=== PATIENT | female | born 1940 | race Caucasian/White ===

== ENCOUNTER 2019-11-01 11:47 | Inpatient (IN) ==
[2019-11-01] MEDS ORDERED: *HR* OxyCODONE/APAP 5/325 TABLET PO PRN (12:03)
[2019-11-01] MEDS ORDERED: *HR* Promethazine 25 MG/ML VIAL IVP PRN (12:03)
[2019-11-01] MEDS ORDERED: Ondansetron 4 MG/2 ML VIAL IVP ONE (12:03)
[2019-11-01] MEDS ORDERED: *HR* HYDROmorphone PF 0.5 MG/0.5 ML SYRINGE IVP PRN (12:03)
[2019-11-01] MEDS ORDERED: Acetaminophen IV 1,000 MG/100 ML INFUS..BTL IVPB ONE (12:04)
[2019-11-01] MEDS ORDERED: CeFAZolin Syr 2,000MG/20 ML 2,000 MG/20 ML SYRINGE IVPB ONE (13:25)
[2019-11-01] MEDS ORDERED: Ringers Solution, Lactated 1,000 ML IVC SCH (13:30)
[2019-11-01] MEDS ORDERED: Dexamethasone 4 MG/ML VIAL ONE (16:37)
[2019-11-01] MEDS ORDERED: Ondansetron 4 MG/2 ML VIAL ONE (16:37)
[2019-11-01] MEDS ORDERED: *HR* FentaNYL (PF) 100 MCG/2 ML VIAL ONE (16:37)
[2019-11-01] MEDS ORDERED: *HR* Succinylcholine 200 MG/10 ML VIAL IVP ONE ×2 (16:37→16:42)
[2019-11-01] MEDS ORDERED: Lidocaine -MPF 2% 2 ML VIAL ONE ×2 (16:37→16:42)
[2019-11-01] MEDS ORDERED: Lidocaine HCL 4 ML Topical Solution (Laryng-O-Jet Kit Sterile Pak) TP ONE (16:37)
[2019-11-01] MEDS ORDERED: *HR* Midazolam HCl 2 MG/2 ML VIAL ONE (16:37)
[2019-11-01] MEDS ORDERED: *HR* Propofol 200 MG/20 ML VIAL IVP ONE ×2 (16:37→16:42)
[2019-11-01] MEDS ORDERED: Vancomycin 1,000 MG VIAL ONE (16:41)
[2019-11-01] MEDS ORDERED: Ethanol\\Acetic Acid\\Na Ace\\Ben 1,000 ML IRRIG.SOLN IR ONE (16:41)
[2019-11-01] MEDS ORDERED: Ropivacaine/PF 0.5% 30 ML VIAL ONE (16:42)
[2019-11-01] MEDS ORDERED: Lidocaine -MPF 4% 5 ML AMPUL ONE (16:42)
[2019-11-01] MEDS ORDERED: ROPIVACAINE/PF/NS 0.25% 1 EACH SYRINGE INTRAART ONE (16:43)
[2019-11-01] MEDS ORDERED: *HR* PHENYLEPHRINE 1,000 MCG/10 ML SYRINGE IVP ONE ×3 (17:00→17:55)
[2019-11-01] MEDS ORDERED: *HR* Enoxaparin 30 MG/0.3 ML SYRINGE SQ SCH (18:00)
[2019-11-01 19:18] LABS: Hematocrit 39.2 % (35.3-44.9); Hemoglobin 13.2 g/dL (11.5-15.4)
[2019-11-01] MEDS ORDERED: D5% in Water 1,000 ML IVC PRN (19:24)
[2019-11-01] MEDS ORDERED: Dextrose Gel 15 GM/37.5 ML TUBE PO PRN ×2 (19:24)
[2019-11-01] MEDS ORDERED: *HR* OxyCODONE Immed Rel 5 MG TABLET PO PRN (19:24)
[2019-11-01] MEDS ORDERED: *HR* Dextrose 50 % in Water (Vial) 50 ML VIAL IVP PRN (19:24)
[2019-11-01] MEDS ORDERED: Sennosides 8.6 MG TABLET PO PRN (19:24)
[2019-11-01] MEDS ORDERED: Ondansetron 4 MG/2 ML VIAL IVP PRN (19:24)
[2019-11-01] MEDS ORDERED: MOM Conc 10 ML UD.LIQ PO PRN (19:24)
[2019-11-01] MEDS: Ringers Solution, Lactated 1,000 ML IVC SCH (19:36)
[2019-11-01] MEDS: Insulin LISPRO 300 UNITS/3 ML VIAL SQ SCH ×2 (20:38→20:39)
[2019-11-02] MEDS: CeFAZolin 2 GM/120 ML BAG IVPB SCH ×2 (01:10→08:28)
[2019-11-02] MEDS: Ringers Solution, Lactated 1,000 ML IVC SCH (04:07)
[2019-11-02] MEDS: *HR* Enoxaparin 30 MG/0.3 ML SYRINGE SQ SCH ×2 (06:13→17:32)
[2019-11-02] MEDS: Insulin LISPRO 300 UNITS/3 ML VIAL SQ SCH ×4 (07:18→20:19)
[2019-11-02 07:57] LABS: Hematocrit 32.6 % (35.3-44.9)
[2019-11-02 08:14] LABS: Hemoglobin 10.5 g/dL (11.5-15.4)
[2019-11-02 08:16] LABS: BUN/Creatinine Ratio 15 (6-26); Blood Urea Nitrogen 11 mg/dL (8-23); Calcium 8.7 mg/dL (8.6-10.3); Carbon Dioxide 27 mEq/L (23-29); Chloride 105 mEq/L (98-107); Glucose 142 mg/dL (70-105); Osmolality,Calculated 290 (280-300); Sodium 139 mEq/L (136-145); eGFR For African Americans > 60 (> 60); eGFR For Non-African Americans > 60 (> 60)
[2019-11-02] MEDS: atenoloL 50 MG TABLET PO SCH (08:29)
[2019-11-02] MEDS: Ascorbic Acid 500 MG TABLET PO SCH (08:29)
[2019-11-02] MEDS: risperiDONE 0.25 MG TABLET PO SCH (08:29)
[2019-11-02] MEDS: amLODIPine 5 MG TABLET PO SCH (08:29)
[2019-11-02] MEDS ORDERED: FOLIC ACID 20 MG PO SCH (09:00)
[2019-11-02] MEDS: *HR* HYDROcodone/Acet 5/325 mg TABLET PO PRN (15:39)
[2019-11-03 04:57] LABS: Hematocrit 29.2 % (35.3-44.9); Hemoglobin 9.5 g/dL (11.5-15.4)
[2019-11-03 05:08] LABS: BUN/Creatinine Ratio 15 (6-26); Blood Urea Nitrogen 12 mg/dL (8-23); Calcium 8.7 mg/dL (8.6-10.3); Carbon Dioxide 30 mEq/L (23-29); Chloride 101 mEq/L (98-107); Glucose 122 mg/dL (70-105); Osmolality,Calculated 285 (280-300); Potassium 3.5 mEq/L (3.5-5.1); Sodium 137 mEq/L (136-145); eGFR For African Americans > 60 (> 60); eGFR For Non-African Americans > 60 (> 60)
[2019-11-03] MEDS: *HR* Enoxaparin 30 MG/0.3 ML SYRINGE SQ SCH ×2 (06:20→17:10)
[2019-11-03] MEDS: *HR* HYDROcodone/Acet 5/325 mg TABLET PO PRN (06:28)
[2019-11-03] MEDS: Insulin LISPRO 300 UNITS/3 ML VIAL SQ SCH ×4 (08:00→20:29)
[2019-11-03] MEDS: amLODIPine 5 MG TABLET PO SCH (09:51)
[2019-11-03] MEDS: risperiDONE 0.25 MG TABLET PO SCH (09:52)
[2019-11-03] MEDS: Ascorbic Acid 500 MG TABLET PO SCH (09:52)
[2019-11-03] MEDS: atenoloL 50 MG TABLET PO SCH (09:53)
[2019-11-03] MEDS: Ringers Solution, Lactated 1,000 ML IVC SCH (16:06)
[2019-11-04] MEDS: *HR* Enoxaparin 30 MG/0.3 ML SYRINGE SQ SCH (05:40)
[2019-11-04] MEDS: *HR* HYDROcodone/Acet 5/325 mg TABLET PO PRN (07:35)
[2019-11-04] MEDS: risperiDONE 0.25 MG TABLET PO SCH (07:35)
[2019-11-04] MEDS: Ascorbic Acid 500 MG TABLET PO SCH (07:37)
[2019-11-04] MEDS: atenoloL 50 MG TABLET PO SCH (07:37)
[2019-11-04] MEDS: amLODIPine 5 MG TABLET PO SCH (07:40)
[2019-11-04] MEDS: Insulin LISPRO 300 UNITS/3 ML VIAL SQ SCH (07:41)
[2019-11-04] MEDS ORDERED: Folic Acid 1 MG TABLET PO SCH (09:00)
[2019-11-04] MEDS ORDERED: MOM Conc 10 ML UD.LIQ PO SCH (10:45)
[2019-11-04 10:50] LABS: Hematocrit 28.7 % (35.3-44.9); Hemoglobin 9.1 g/dL (11.5-15.4)
[2019-11-04 11:04] VITALS: BP 106/60
== END 2019-11-04 12:40 | DRG 483 ==
LOC: SAMDAY 11:47 → 3NENU 12:33
PROVIDERS: ADMIT Orthopaedic Surgery; ATTEND Orthopaedic Surgery

== ENCOUNTER 2021-06-03 10:59 | Inpatient (IN) ==
[2021-06-03 12:09] LABS: Hematocrit 40.8 % (35.3-44.9); Hemoglobin 13.7 g/dL (11.5-15.4); Lymphocytes # 14.5 K/mcL (0.6-4.6); Mean Corpuscular HGB Conc 33.6 g/dL (31.6-35.5); Mean Corpuscular Hemoglobin 32.3 pg (28.0-33.3); Mean Corpuscular Volume 96.2 fL (83.0-100.0); Mean Platelet Volume 10.3 fL (9.4-12.4); Nucleated Red Blood Cells 0.3 /100 WBC (0); Red Blood Count 4.24 M/mcL (3.82-4.97); Red Cell Distribution Width 13.5 % (11.5-14.5); White Blood Count 19.1 K/mcL (4.3-11.1)
[2021-06-03 12:10] LABS: Platelet Count 79 K/mcL (140-400)
[2021-06-03 12:35] LABS: Neutrophils # 4.6 K/mcL (1.6-8.9)
[2021-06-03 12:36] LABS: Platelet Estimate Decreased (Normal)
[2021-06-03 12:45] LABS: Alanine Aminotransferase > 5000 Units/L (7-52); Albumin 4.2 g/dL (3.5-5.7); Albumin/Globulin Ratio 1.6 (1.1-2.2); Alkaline Phosphatase 93 Units/L (34-104); Aspartate Amino Transferase > 3000 Units/L (13-39); BUN/Creatinine Ratio 27 (6-26); Bilirubin,Total 2.1 mg/dL (0.3-1.0); Blood Urea Nitrogen 35 mg/dL (8-23); Calcium 9.4 mg/dL (8.6-10.3); Carbon Dioxide 22 mEq/L (23-29); Chloride 96 mEq/L (98-107); Globulin 2.6 g/dL (2.4-3.5); Glucose 97 mg/dL (70-105); Magnesium 2.4 mg/dL (1.6-2.6); Osmolality,Calculated 280 (280-300); Potassium 4.4 mEq/L (3.5-5.1); Sodium 131 mEq/L (136-145); Total Protein 6.8 g/dL (6.4-8.9); eGFR For African Americans 48 (> 60); eGFR For Non-African Americans 40 (> 60)
[2021-06-03] MEDS ORDERED: Isovue-370 500 ML BOTTLE IVP ONE (12:51)
[2021-06-03 13:00] LABS: Influenza A PCR Negative (Negative); Influenza B PCR Negative (Negative); Resp. Syncytial Virus PCR Negative (Negative)
[2021-06-03 13:01] LABS: SARS-CoV-2 by PCR (In House) Negative (Negative)
[2021-06-03 13:57] LABS: Acetaminophen < 10 mcg/mL (10-20); Bilirubin,Direct 0.9 mg/dL (0.0-0.2); Lipase 31 Units/L (11-82)
[2021-06-03] MEDS ORDERED: WATER IVC ONE (14:02)
[2021-06-03] MEDS ORDERED: ACETYLCYSTEINE IVC ONE (14:02)
[2021-06-03] MEDS ORDERED: D5 IVC ONE (14:02)
[2021-06-03 14:11] LABS: INR 1.8; Prothrombin Time 20.2 Seconds (9.4-12.1)
[2021-06-03 14:14] LABS: Activated Partial Thrombo Time 26.2 Seconds (26.0-36.0)
[2021-06-03 14:40] LABS: Hepatitis B Surface Antigen Nonreactive (Nonreactive)
[2021-06-03 15:08] LABS: Hepatitis B Core IgM Nonreactive (Nonreactive)
[2021-06-03 15:12] LABS: Hepatitis C Virus Antibody Nonreactive (Nonreactive)
[2021-06-03 15:14] LABS: Hepatitis A Antibody IgM Nonreactive (Nonreactive)
[2021-06-03] MEDS ORDERED: Acetylcysteine 3,200 MG in D5% in Water 500 ML IVC ONE (15:30)
[2021-06-03 17:08] LABS: Bilirubin,Urine Negative (Negative); Blood,Urine Small (Negative); Clarity,Urine Turbid (Clear); Color,Urine Yellow (Yellow); Glucose,Urine (UA) Normal (Normal); Ketones,Urine 80 mg/dL (Negative); Leukocyte Esterase,Urine Negative (Negative); Mucus,Urine Few per lpf (None-Few); Nitrite,Urine Negative (Negative); PH,Urine 5.5 pH Units (5.0-8.0); Protein,Urine 50 mg/dL (Neg-Trace); RBC,Urine 0-3 per hpf (0-3); Specific Gravity,Urine > 1.030 (1.010-1.025); Squamous Epithelial Cell,Urine Few per hpf (None-Few); Urobilinogen,Urine Normal (Normal)
[2021-06-03 17:12] LABS: Budding Yeast,Urine Few per hpf (None Seen)
[2021-06-03] MEDS ORDERED: Naloxone 0.4 MG/ML INJ IVP PRN (17:48)
[2021-06-03] MEDS ORDERED: Ondansetron 4 MG/2 ML VIAL IVP PRN (17:48)
[2021-06-03] MEDS ORDERED: 0.9 % Sodium Chloride 1,000 ML IVC SCH (18:00)
[2021-06-03] MEDS ORDERED: Acetylcysteine 6,500 MG in D5% in Water 1,000 ML IVC ONE (19:30)
[2021-06-03 20:15] LABS: Amphetamine Screen,Urine Negative ng/mL (Cutoff=1000); Barbiturate Screen,Urine Negative ng/mL (Cutoff=200); Benzodiazepines Screen,Urine Negative ng/mL (Cutoff=200); Cannabinoid Screen,Urine Negative ng/mL (Cutoff = 50); Cocaine Screen,Urine Negative ng/mL (Cutoff= 300); Opiate Screen,Urine Negative ng/mL (Cutoff=300); Phencyclidine Screen,Urine Negative ng/mL (Cutoff=25)
[2021-06-04 02:15] LABS: Mean Corpuscular Hemoglobin 32.3 pg (28.0-33.3); Mean Platelet Volume 10.7 fL (9.4-12.4); Nucleated Red Blood Cells 0.2 /100 WBC (0); Red Cell Distribution Width 13.3 % (11.5-14.5)
[2021-06-04 02:17] LABS: Basophils % 0.2 %; Eosinophils % 0.1 %; Immature Granulocytes % 0.3 % (0-4); Immature Platelets 6.2 % (1.1-6.1); Lymphocytes # 18.7 K/mcL (0.6-4.6); Lymphocytes % 81.3 %; Mean Corpuscular HGB Conc 34.3 g/dL (31.6-35.5); Mean Corpuscular Volume 94.3 fL (83.0-100.0); Monocytes # 1.2 K/mcL (0.0-1.3); Monocytes % 5.1 %; Red Blood Count 3.71 M/mcL (3.82-4.97)
[2021-06-04 02:26] LABS: INR 1.6; Prothrombin Time 17.4 Seconds (9.4-12.1)
[2021-06-04 02:35] LABS: Basophils # 0.1 K/mcL (0.0-0.2); Platelet Count 88 K/mcL (140-400)
[2021-06-04 02:50] LABS: Platelet Estimate Decreased (Normal); Reactive Lymphocytes Present (Not Present); Smudge Cells Present (Not Present)
[2021-06-04 06:28] LABS: BUN/Creatinine Ratio 28 (6-26); Blood Urea Nitrogen 28 mg/dL (8-23); Carbon Dioxide 23 mEq/L (23-29); Chloride 97 mEq/L (98-107); Glucose 133 mg/dL (70-105); Magnesium 2.3 mg/dL (1.6-2.6); Osmolality,Calculated 283 (280-300); Phosphorous 2.2 mg/dL (2.7-4.5); Sodium 133 mEq/L (136-145); eGFR For African Americans > 60 (> 60); eGFR For Non-African Americans 53 (> 60)
[2021-06-04 09:51] LABS: Alanine Aminotransferase 4012 Units/L (7-52); Albumin 3.5 g/dL (3.5-5.7); Albumin/Globulin Ratio 1.5 (1.1-2.2); Alkaline Phosphatase 73 Units/L (34-104); Aspartate Amino Transferase 2285 Units/L (13-39); Bilirubin,Direct 0.8 mg/dL (0.0-0.2); Bilirubin,Total 1.8 mg/dL (0.3-1.0); Globulin 2.3 g/dL (2.4-3.5); Total Protein 5.8 g/dL (6.4-8.9)
[2021-06-05 05:24] LABS: Basophils % 0.2 %; Eosinophils % 0.3 %
[2021-06-05 05:26] LABS: Eosinophils # 0.1 K/mcL (0.0-0.6); Hematocrit 32.5 % (35.3-44.9); INR 1.2; Immature Granulocytes % 0.3 % (0-4); Lymphocytes % 83.2 %; Mean Corpuscular HGB Conc 33.8 g/dL (31.6-35.5); Mean Corpuscular Hemoglobin 32.3 pg (28.0-33.3); Mean Corpuscular Volume 95.3 fL (83.0-100.0); Monocytes # 1.3 K/mcL (0.0-1.3); Monocytes % 5.6 %; Neutrophils # 2.4 K/mcL (1.6-8.9); Prothrombin Time 13.1 Seconds (9.4-12.1); Red Blood Count 3.41 M/mcL (3.82-4.97); Red Cell Distribution Width 13.4 % (11.5-14.5); Segmented Neutrophils % 10.4 %; White Blood Count 22.8 K/mcL (4.3-11.1)
[2021-06-05 05:34] LABS: Basophils # 0.1 K/mcL (0.0-0.2); Platelet Count 90 K/mcL (140-400)
[2021-06-05 05:44] LABS: BUN/Creatinine Ratio 21 (6-26); Blood Urea Nitrogen 15 mg/dL (8-23); Calcium 8.5 mg/dL (8.6-10.3); Carbon Dioxide 26 mEq/L (23-29); Chloride 102 mEq/L (98-107); Glucose 91 mg/dL (70-105); Magnesium 2.2 mg/dL (1.6-2.6); Osmolality,Calculated 282 (280-300); Phosphorous 2.2 mg/dL (2.7-4.5); Sodium 136 mEq/L (136-145); eGFR For African Americans > 60 (> 60); eGFR For Non-African Americans > 60 (> 60)
[2021-06-05 06:47] LABS: Platelet Estimate Decreased (Normal); Reactive Lymphocytes Present (Not Present); Smudge Cells Present (Not Present)
[2021-06-05] MEDS ORDERED: Lactulose Oral Soln 20 GM/30 ML UDC PO SCH (09:00)
[2021-06-05 09:26] LABS: Albumin 3.5 g/dL (3.5-5.7); Albumin/Globulin Ratio 1.5 (1.1-2.2); Bilirubin,Direct 0.7 mg/dL (0.0-0.2); Bilirubin,Total 1.7 mg/dL (0.3-1.0); Globulin 2.4 g/dL (2.4-3.5); Total Protein 5.9 g/dL (6.4-8.9)
[2021-06-05] MEDS ORDERED: Potassium Phosphate 44 MEQ in 0.9 % Sodium Chloride 250 ML IVPB ONE (11:45)
[2021-06-05] MEDS: atenoloL 50 MG TABLET PO SCH (12:40)
[2021-06-05] MEDS: amLODIPine 5 MG TABLET PO SCH (12:41)
[2021-06-05] MEDS: risperiDONE 0.25 MG TABLET PO SCH (21:50)
[2021-06-06 01:27] LABS: Basophils % 0.2 %; Eosinophils % 0.2 %; Hematocrit 34.9 % (35.3-44.9); Immature Granulocytes % 0.2 % (0-4); Mean Corpuscular Volume 97.5 fL (83.0-100.0); Red Blood Count 3.58 M/mcL (3.82-4.97)
[2021-06-06 01:29] LABS: Basophils # 0.1 K/mcL (0.0-0.2); Eosinophils # 0.1 K/mcL (0.0-0.6); Hemoglobin 11.5 g/dL (11.5-15.4); Immature Platelets 6.4 % (1.1-6.1); Lymphocytes # 25.4 K/mcL (0.6-4.6); Lymphocytes % 87.9 %; Mean Corpuscular Hemoglobin 32.1 pg (28.0-33.3); Mean Platelet Volume 10.6 fL (9.4-12.4); Monocytes # 0.2 K/mcL (0.0-1.3); Monocytes % 0.7 %; Neutrophils # 3.1 K/mcL (1.6-8.9); Platelet Count 107 K/mcL (140-400); Red Cell Distribution Width 13.5 % (11.5-14.5); Segmented Neutrophils % 10.8 %; White Blood Count 28.9 K/mcL (4.3-11.1)
[2021-06-06 01:35] LABS: INR 1.1; Prothrombin Time 12.4 Seconds (9.4-12.1)
[2021-06-06 01:56] LABS: Platelet Estimate Slight Decrease (Normal); Reactive Lymphocytes Present (Not Present); Smudge Cells Present (Not Present)
[2021-06-06 02:04] LABS: Alanine Aminotransferase 1619 Units/L (7-52); Albumin 3.4 g/dL (3.5-5.7); Albumin/Globulin Ratio 1.4 (1.1-2.2); Alkaline Phosphatase 80 Units/L (34-104); Aspartate Amino Transferase 287 Units/L (13-39); BUN/Creatinine Ratio 21 (6-26); Bilirubin,Total 1.5 mg/dL (0.3-1.0); Blood Urea Nitrogen 13 mg/dL (8-23); Calcium 8.4 mg/dL (8.6-10.3); Carbon Dioxide 25 mEq/L (23-29); Chloride 104 mEq/L (98-107); Globulin 2.5 g/dL (2.4-3.5); Glucose 97 mg/dL (70-105); Osmolality,Calculated 274 (280-300); Potassium 3.4 mEq/L (3.5-5.1); Sodium 132 mEq/L (136-145); Total Protein 5.9 g/dL (6.4-8.9); eGFR For African Americans > 60 (> 60); eGFR For Non-African Americans > 60 (> 60)
[2021-06-06] MEDS: Ascorbic Acid 500 MG TABLET PO SCH (10:29)
[2021-06-06] MEDS: amLODIPine 5 MG TABLET PO SCH (10:29)
[2021-06-06] MEDS: atenoloL 50 MG TABLET PO SCH (10:30)
[2021-06-06] MEDS: Folic Acid 1 MG TABLET PO SCH (10:30)
[2021-06-06] MEDS: Aspirin 325 MG TABLET PO SCH (10:38)
[2021-06-06] MEDS: risperiDONE 0.25 MG TABLET PO SCH (21:41)
[2021-06-07 04:45] LABS: Hemoglobin 12.5 g/dL (11.5-15.4); Immature Granulocytes % 0.3 % (0-4); Mean Corpuscular Hemoglobin 32.9 pg (28.0-33.3); Nucleated Red Blood Cells 0.3 /100 WBC (0); Red Cell Distribution Width 13.6 % (11.5-14.5)
[2021-06-07 04:48] LABS: Basophils # 0.3 K/mcL (0.0-0.2); Eosinophils # 0.1 K/mcL (0.0-0.6); Eosinophils % 0.3 %; Hematocrit 37.3 % (35.3-44.9); Immature Platelets 5.1 % (1.1-6.1); Lymphocytes # 22.9 K/mcL (0.6-4.6); Lymphocytes % 85.6 %; Mean Corpuscular HGB Conc 33.5 g/dL (31.6-35.5); Mean Corpuscular Volume 98.2 fL (83.0-100.0); Mean Platelet Volume 10.2 fL (9.4-12.4); Monocytes # 0.2 K/mcL (0.0-1.3); Monocytes % 0.9 %; Neutrophils # 3.2 K/mcL (1.6-8.9); Platelet Count 116 K/mcL (140-400); Segmented Neutrophils % 11.9 %; White Blood Count 26.8 K/mcL (4.3-11.1)
[2021-06-07 05:28] LABS: Alanine Aminotransferase 1086 Units/L (7-52); Albumin 3.6 g/dL (3.5-5.7); Albumin/Globulin Ratio 1.4 (1.1-2.2); Alkaline Phosphatase 82 Units/L (34-104); Aspartate Amino Transferase 124 Units/L (13-39); BUN/Creatinine Ratio 20 (6-26); Bilirubin,Direct 0.4 mg/dL (0.0-0.2); Bilirubin,Indirect 0.8 mg/dL (0.0-1.0); Bilirubin,Total 1.2 mg/dL (0.3-1.0); Blood Urea Nitrogen 11 mg/dL (8-23); Calcium 8.7 mg/dL (8.6-10.3); Carbon Dioxide 25 mEq/L (23-29); Chloride 105 mEq/L (98-107); Globulin 2.6 g/dL (2.4-3.5); Glucose 112 mg/dL (70-105); Osmolality,Calculated 272 (280-300); Potassium 4.2 mEq/L (3.5-5.1); Sodium 131 mEq/L (136-145); Total Protein 6.2 g/dL (6.4-8.9); eGFR For African Americans > 60 (> 60); eGFR For Non-African Americans > 60 (> 60)
[2021-06-07 05:41] LABS: Platelet Estimate Slight Decrease (Normal); Reactive Lymphocytes Present (Not Present); Smudge Cells Present (Not Present)
[2021-06-07] MEDS: Aspirin 325 MG TABLET PO SCH (09:33)
[2021-06-07] MEDS: Folic Acid 1 MG TABLET PO SCH (09:33)
[2021-06-07] MEDS: amLODIPine 5 MG TABLET PO SCH (09:33)
[2021-06-07] MEDS: Ascorbic Acid 500 MG TABLET PO SCH (09:34)
[2021-06-07] MEDS: atenoloL 50 MG TABLET PO SCH (09:34)
[2021-06-07] MEDS ORDERED: Simethicone 80 MG TAB.CHEW PO PRN (10:22)
[2021-06-07] MEDS: risperiDONE 0.25 MG TABLET PO SCH (20:48)
[2021-06-08 02:12] LABS: Basophils % 0.2 %
[2021-06-08 02:13] LABS: Basophils # 0.1 K/mcL (0.0-0.2); Eosinophils # 0.2 K/mcL (0.0-0.6); Eosinophils % 0.7 %; Hematocrit 38.5 % (35.3-44.9); Hemoglobin 12.5 g/dL (11.5-15.4); Immature Granulocytes % 0.4 % (0-4); Immature Platelets 5.7 % (1.1-6.1); Lymphocytes # 23.7 K/mcL (0.6-4.6); Lymphocytes % 84.2 %; Mean Corpuscular HGB Conc 32.5 g/dL (31.6-35.5); Mean Corpuscular Hemoglobin 32.1 pg (28.0-33.3); Mean Platelet Volume 9.9 fL (9.4-12.4); Monocytes # 0.2 K/mcL (0.0-1.3); Monocytes % 0.8 %; Platelet Count 125 K/mcL (140-400); Red Blood Count 3.89 M/mcL (3.82-4.97); Segmented Neutrophils % 13.7 %; White Blood Count 28.2 K/mcL (4.3-11.1)
[2021-06-08 02:19] LABS: INR 1.1; Prothrombin Time 12.1 Seconds (9.4-12.1)
[2021-06-08 02:24] LABS: Neutrophils # 3.9 K/mcL (1.6-8.9)
[2021-06-08 02:41] LABS: Platelet Estimate Normal (Normal); Reactive Lymphocytes Present (Not Present); Smudge Cells Present (Not Present)
[2021-06-08 02:50] LABS: Alanine Aminotransferase 776 Units/L (7-52); Albumin 3.5 g/dL (3.5-5.7); Albumin/Globulin Ratio 1.3 (1.1-2.2); Alkaline Phosphatase 79 Units/L (34-104); Aspartate Amino Transferase 73 Units/L (13-39); BUN/Creatinine Ratio 23 (6-26); Bilirubin,Direct 0.4 mg/dL (0.0-0.2); Bilirubin,Indirect 0.8 mg/dL (0.0-1.0); Bilirubin,Total 1.2 mg/dL (0.3-1.0); Blood Urea Nitrogen 13 mg/dL (8-23); Calcium 8.8 mg/dL (8.6-10.3); Carbon Dioxide 23 mEq/L (23-29); Chloride 103 mEq/L (98-107); Globulin 2.6 g/dL (2.4-3.5); Glucose 92 mg/dL (70-105); Osmolality,Calculated 272 (280-300); Potassium 4.3 mEq/L (3.5-5.1); Sodium 131 mEq/L (136-145); Total Protein 6.1 g/dL (6.4-8.9); eGFR For African Americans > 60 (> 60); eGFR For Non-African Americans > 60 (> 60)
[2021-06-08] MEDS: atenoloL 50 MG TABLET PO SCH (08:31)
[2021-06-08] MEDS: Aspirin 325 MG TABLET PO SCH (08:31)
[2021-06-08] MEDS: amLODIPine 5 MG TABLET PO SCH (08:31)
[2021-06-08] MEDS: Ascorbic Acid 500 MG TABLET PO SCH (08:31)
[2021-06-08] MEDS: Folic Acid 1 MG TABLET PO SCH (08:31)
[2021-06-08] MEDS: risperiDONE 0.25 MG TABLET PO SCH (21:09)
[2021-06-09 03:29] LABS: Basophils % 0.2 %
[2021-06-09 03:31] LABS: Basophils # 0.1 K/mcL (0.0-0.2); Eosinophils # 0.2 K/mcL (0.0-0.6); Eosinophils % 0.7 %; Hematocrit 35.6 % (35.3-44.9); Hemoglobin 11.8 g/dL (11.5-15.4); Immature Granulocytes % 0.2 % (0-4); Immature Platelets 5.9 % (1.1-6.1); Lymphocytes # 23.6 K/mcL (0.6-4.6); Lymphocytes % 87.2 %; Mean Corpuscular HGB Conc 33.1 g/dL (31.6-35.5); Mean Corpuscular Hemoglobin 32.3 pg (28.0-33.3); Mean Corpuscular Volume 97.5 fL (83.0-100.0); Mean Platelet Volume 9.7 fL (9.4-12.4); Monocytes # 0.2 K/mcL (0.0-1.3); Monocytes % 0.7 %; Platelet Count 122 K/mcL (140-400); Red Blood Count 3.65 M/mcL (3.82-4.97); Red Cell Distribution Width 14.2 % (11.5-14.5); White Blood Count 27.1 K/mcL (4.3-11.1)
[2021-06-09 03:37] LABS: Prothrombin Time 11.3 Seconds (9.4-12.1)
[2021-06-09 03:40] LABS: BUN/Creatinine Ratio 21 (6-26); Blood Urea Nitrogen 15 mg/dL (8-23); Calcium 8.7 mg/dL (8.6-10.3); Carbon Dioxide 26 mEq/L (23-29); Chloride 103 mEq/L (98-107); Glucose 100 mg/dL (70-105); Osmolality,Calculated 275 (280-300); Sodium 132 mEq/L (136-145); eGFR For African Americans > 60 (> 60); eGFR For Non-African Americans > 60 (> 60)
[2021-06-09 04:01] LABS: Albumin 3.5 g/dL (3.5-5.7); Albumin/Globulin Ratio 1.3 (1.1-2.2); Bilirubin,Direct 0.4 mg/dL (0.0-0.2); Bilirubin,Indirect 0.6 mg/dL (0.0-1.0); Globulin 2.6 g/dL (2.4-3.5); Total Protein 6.1 g/dL (6.4-8.9)
[2021-06-09 04:17] LABS: Platelet Estimate Normal (Normal)
[2021-06-09] MEDS: atenoloL 50 MG TABLET PO SCH (09:47)
[2021-06-09] MEDS: amLODIPine 5 MG TABLET PO SCH (09:47)
[2021-06-09] MEDS: Aspirin 325 MG TABLET PO SCH (09:47)
[2021-06-09] MEDS: Ascorbic Acid 500 MG TABLET PO SCH (09:47)
[2021-06-09] MEDS: Folic Acid 1 MG TABLET PO SCH (09:47)
[2021-06-09 10:48] LABS: Cytomegalovirus DNA (PCR) NOT DETECTED; Herpes Simplex PCR Qual Res NOT DETECTED
[2021-06-09] MEDS: Piperacillin/Tazobactam 3.375 GM in 0.9 % Sodium Chloride Mini Bag 100 ML IVPB SCH (18:57)
[2021-06-09] MEDS: risperiDONE 0.25 MG TABLET PO SCH (20:43)
[2021-06-10] MEDS: Piperacillin/Tazobactam 3.375 GM in 0.9 % Sodium Chloride Mini Bag 100 ML IVPB SCH ×3 (00:11→17:02)
[2021-06-10 08:40] LABS: Basophils % 0.2 %; Eosinophils % 0.5 %; Immature Granulocytes % 0.2 % (0-4); Mean Platelet Volume 10.2 fL (9.4-12.4); Monocytes % 0.7 %
[2021-06-10 08:42] LABS: Basophils # 0.1 K/mcL (0.0-0.2); Eosinophils # 0.2 K/mcL (0.0-0.6); Hematocrit 35.8 % (35.3-44.9); Hemoglobin 11.8 g/dL (11.5-15.4); Immature Platelets 5.1 % (1.1-6.1); Lymphocytes # 27.1 K/mcL (0.6-4.6); Lymphocytes % 88.3 %; Mean Corpuscular Hemoglobin 32.6 pg (28.0-33.3); Mean Corpuscular Volume 98.9 fL (83.0-100.0); Monocytes # 0.2 K/mcL (0.0-1.3); Neutrophils # 3.1 K/mcL (1.6-8.9); Nucleated Red Blood Cells 0.1 /100 WBC (0); Platelet Count 140 K/mcL (140-400); Red Blood Count 3.62 M/mcL (3.82-4.97); Red Cell Distribution Width 14.1 % (11.5-14.5); Segmented Neutrophils % 10.1 %
[2021-06-10 08:46] LABS: White Blood Count 30.7 K/mcL (4.3-11.1)
[2021-06-10 08:47] LABS: INR 1.1; Prothrombin Time 11.9 Seconds (9.4-12.1)
[2021-06-10 08:59] LABS: Platelet Estimate Normal (Normal); Reactive Lymphocytes Present (Not Present); Smudge Cells Present (Not Present)
[2021-06-10 09:02] LABS: BUN/Creatinine Ratio 20 (6-26); Blood Urea Nitrogen 17 mg/dL (8-23); Calcium 8.6 mg/dL (8.6-10.3); Carbon Dioxide 27 mEq/L (23-29); Chloride 103 mEq/L (98-107); Glucose 96 mg/dL (70-105); Osmolality,Calculated 281 (280-300); Potassium 3.9 mEq/L (3.5-5.1); Sodium 135 mEq/L (136-145); eGFR For African Americans > 60 (> 60); eGFR For Non-African Americans > 60 (> 60)
[2021-06-10 09:05] LABS: Albumin 3.4 g/dL (3.5-5.7); Albumin/Globulin Ratio 1.2 (1.1-2.2); Bilirubin,Direct 0.4 mg/dL (0.0-0.2); Bilirubin,Indirect 0.7 mg/dL (0.0-1.0); Bilirubin,Total 1.1 mg/dL (0.3-1.0); Globulin 2.8 g/dL (2.4-3.5); Total Protein 6.2 g/dL (6.4-8.9)
[2021-06-10] MEDS: atenoloL 50 MG TABLET PO SCH (09:22)
[2021-06-10] MEDS: Aspirin 325 MG TABLET PO SCH (09:22)
[2021-06-10] MEDS: amLODIPine 5 MG TABLET PO SCH (09:22)
[2021-06-10] MEDS: Folic Acid 1 MG TABLET PO SCH (09:22)
[2021-06-10] MEDS: Ascorbic Acid 500 MG TABLET PO SCH (09:22)
[2021-06-10] MEDS: risperiDONE 0.25 MG TABLET PO SCH (19:39)
[2021-06-11] MEDS: Piperacillin/Tazobactam 3.375 GM in 0.9 % Sodium Chloride Mini Bag 100 ML IVPB SCH ×3 (00:21→15:41)
[2021-06-11 08:36] LABS: Hemoglobin 12.4 g/dL (11.5-15.4)
[2021-06-11 08:37] LABS: Hematocrit 37.3 % (35.3-44.9); Mean Corpuscular HGB Conc 33.2 g/dL (31.6-35.5); Mean Corpuscular Hemoglobin 32.7 pg (28.0-33.3); Mean Corpuscular Volume 98.4 fL (83.0-100.0); Platelet Count 134 K/mcL (140-400); Red Blood Count 3.79 M/mcL (3.82-4.97); White Blood Count 25.3 K/mcL (4.3-11.1)
[2021-06-11] MEDS: Ascorbic Acid 500 MG TABLET PO SCH (08:42)
[2021-06-11] MEDS: Folic Acid 1 MG TABLET PO SCH (08:42)
[2021-06-11] MEDS: Aspirin 325 MG TABLET PO SCH (08:42)
[2021-06-11 08:43] LABS: INR 1.1; Prothrombin Time 11.9 Seconds (9.4-12.1)
[2021-06-11] MEDS: amLODIPine 5 MG TABLET PO SCH (08:43)
[2021-06-11] MEDS: atenoloL 50 MG TABLET PO SCH (08:43)
[2021-06-11 08:55] LABS: BUN/Creatinine Ratio 16 (6-26); Blood Urea Nitrogen 13 mg/dL (8-23); Calcium 9.1 mg/dL (8.6-10.3); Carbon Dioxide 27 mEq/L (23-29); Chloride 100 mEq/L (98-107); Glucose 94 mg/dL (70-105); Magnesium 1.9 mg/dL (1.6-2.6); Osmolality,Calculated 274 (280-300); Sodium 132 mEq/L (136-145); eGFR For African Americans > 60 (> 60); eGFR For Non-African Americans > 60 (> 60)
[2021-06-11 13:01] LABS: Lymphocytes # 19.7 K/mcL (0.6-4.6); Neutrophils # 4.6 K/mcL (1.6-8.9); Reactive Lymphocytes Present (Not Present); Smudge Cells Present (Not Present)
[2021-06-11 13:02] LABS: Platelet Estimate Slight Decrease (Normal)
[2021-06-11] MEDS: risperiDONE 0.25 MG TABLET PO SCH (21:30)
[2021-06-12] MEDS: Piperacillin/Tazobactam 3.375 GM in 0.9 % Sodium Chloride Mini Bag 100 ML IVPB SCH ×2 (00:28→11:25)
[2021-06-12 07:23] LABS: Mean Corpuscular Hemoglobin 32.7 pg (28.0-33.3); Mean Corpuscular Volume 99.4 fL (83.0-100.0)
[2021-06-12 07:25] LABS: Hemoglobin 11.2 g/dL (11.5-15.4); Immature Platelets 4.9 % (1.1-6.1); Mean Corpuscular HGB Conc 32.9 g/dL (31.6-35.5); Platelet Count 153 K/mcL (140-400); Red Blood Count 3.42 M/mcL (3.82-4.97); Red Cell Distribution Width 14.1 % (11.5-14.5); White Blood Count 26.5 K/mcL (4.3-11.1)
[2021-06-12 07:43] LABS: Alanine Aminotransferase 202 Units/L (7-52); Albumin 3.3 g/dL (3.5-5.7); Albumin/Globulin Ratio 1.1 (1.1-2.2); Alkaline Phosphatase 79 Units/L (34-104); Aspartate Amino Transferase 25 Units/L (13-39); BUN/Creatinine Ratio 22 (6-26); Bilirubin,Direct 0.3 mg/dL (0.0-0.2); Bilirubin,Indirect 0.6 mg/dL (0.0-1.0); Bilirubin,Total 0.9 mg/dL (0.3-1.0); Blood Urea Nitrogen 20 mg/dL (8-23); Calcium 8.9 mg/dL (8.6-10.3); Carbon Dioxide 28 mEq/L (23-29); Chloride 102 mEq/L (98-107); Glucose 94 mg/dL (70-105); Magnesium 1.9 mg/dL (1.6-2.6); Osmolality,Calculated 280 (280-300); Sodium 134 mEq/L (136-145); Total Protein 6.3 g/dL (6.4-8.9); eGFR For African Americans > 60 (> 60); eGFR For Non-African Americans 60 (> 60)
[2021-06-12 08:04] LABS: Lymphocytes # 21.7 K/mcL (0.6-4.6); Monocytes # 1.1 K/mcL (0.0-1.3); Neutrophils # 3.7 K/mcL (1.6-8.9); Platelet Estimate Normal (Normal)
[2021-06-12 08:05] LABS: Reactive Lymphocytes Present (Not Present); Smudge Cells Present (Not Present)
[2021-06-12] MEDS: Folic Acid 1 MG TABLET PO SCH (11:26)
[2021-06-12] MEDS: amLODIPine 5 MG TABLET PO SCH (11:26)
[2021-06-12] MEDS: Ascorbic Acid 500 MG TABLET PO SCH (11:27)
[2021-06-12] MEDS: Aspirin 325 MG TABLET PO SCH (11:28)
[2021-06-12] MEDS: atenoloL 50 MG TABLET PO SCH (11:28)
[2021-06-12] MEDS: risperiDONE 0.25 MG TABLET PO SCH (22:27)
[2021-06-12] MEDS: Lactobacillus 1 EACH CAP.SPRINK PO SCH (22:27)
[2021-06-13 04:46] LABS: Basophils # 0.1 K/mcL (0.0-0.2); Basophils % 0.2 %; Eosinophils # 0.1 K/mcL (0.0-0.6); Eosinophils % 0.4 %; Hemoglobin 10.8 g/dL (11.5-15.4); Immature Granulocytes % 0.2 % (0-4); Lymphocytes # 22.1 K/mcL (0.6-4.6); Mean Corpuscular HGB Conc 31.8 g/dL (31.6-35.5); Mean Corpuscular Hemoglobin 32.2 pg (28.0-33.3); Mean Corpuscular Volume 101.5 fL (83.0-100.0); Mean Platelet Volume 9.9 fL (9.4-12.4); Monocytes # 0.2 K/mcL (0.0-1.3); Monocytes % 0.8 %; Neutrophils # 2.1 K/mcL (1.6-8.9); Platelet Count 123 K/mcL (140-400); Red Blood Count 3.35 M/mcL (3.82-4.97); Red Cell Distribution Width 14.3 % (11.5-14.5); Segmented Neutrophils % 8.4 %; White Blood Count 24.5 K/mcL (4.3-11.1)
[2021-06-13 05:08] LABS: BUN/Creatinine Ratio 23 (6-26); Blood Urea Nitrogen 17 mg/dL (8-23); Calcium 9.1 mg/dL (8.6-10.3); Carbon Dioxide 26 mEq/L (23-29); Chloride 103 mEq/L (98-107); Glucose 93 mg/dL (70-105); Osmolality,Calculated 279 (280-300); Potassium 3.9 mEq/L (3.5-5.1); Sodium 134 mEq/L (136-145); eGFR For African Americans > 60 (> 60); eGFR For Non-African Americans > 60 (> 60)
[2021-06-13 05:11] LABS: Albumin 3.3 g/dL (3.5-5.7); Albumin/Globulin Ratio 1.1 (1.1-2.2); Bilirubin,Direct 0.2 mg/dL (0.0-0.2); Bilirubin,Indirect 0.5 mg/dL (0.0-1.0); Bilirubin,Total 0.7 mg/dL (0.3-1.0); Globulin 2.9 g/dL (2.4-3.5); Total Protein 6.2 g/dL (6.4-8.9)
[2021-06-13 05:16] LABS: Platelet Estimate Normal (Normal); Reactive Lymphocytes Present (Not Present); Smudge Cells Present (Not Present)
[2021-06-13] MEDS: Aspirin 325 MG TABLET PO SCH (08:06)
[2021-06-13] MEDS: Lactobacillus 1 EACH CAP.SPRINK PO SCH ×2 (08:06→21:07)
[2021-06-13] MEDS: atenoloL 50 MG TABLET PO SCH (08:07)
[2021-06-13] MEDS: amLODIPine 5 MG TABLET PO SCH (08:07)
[2021-06-13] MEDS: Ascorbic Acid 500 MG TABLET PO SCH (08:07)
[2021-06-13] MEDS: Folic Acid 1 MG TABLET PO SCH (08:07)
[2021-06-13] MEDS: risperiDONE 0.25 MG TABLET PO SCH (21:06)
[2021-06-14 05:47] LABS: BUN/Creatinine Ratio 22 (6-26); Blood Urea Nitrogen 15 mg/dL (8-23); Calcium 8.8 mg/dL (8.6-10.3); Carbon Dioxide 29 mEq/L (23-29); Chloride 102 mEq/L (98-107); Glucose 91 mg/dL (70-105); Magnesium 1.8 mg/dL (1.6-2.6); Osmolality,Calculated 280 (280-300); Potassium 3.8 mEq/L (3.5-5.1); Sodium 135 mEq/L (136-145); eGFR For African Americans > 60 (> 60); eGFR For Non-African Americans > 60 (> 60)
[2021-06-14 05:48] LABS: Mean Platelet Volume 10.5 fL (9.4-12.4)
[2021-06-14 05:50] LABS: Hematocrit 34.2 % (35.3-44.9); Hemoglobin 11.3 g/dL (11.5-15.4); Mean Corpuscular Hemoglobin 32.8 pg (28.0-33.3); Mean Corpuscular Volume 99.4 fL (83.0-100.0); Platelet Count 141 K/mcL (140-400); Red Blood Count 3.44 M/mcL (3.82-4.97); Red Cell Distribution Width 14.1 % (11.5-14.5); White Blood Count 26.5 K/mcL (4.3-11.1)
[2021-06-14 07:12] LABS: Platelet Estimate Normal (Normal); Reactive Lymphocytes Present (Not Present); Smudge Cells Present (Not Present)
[2021-06-14 08:05] LABS: Albumin 3.5 g/dL (3.5-5.7); Albumin/Globulin Ratio 1.3 (1.1-2.2); Bilirubin,Direct 0.3 mg/dL (0.0-0.2); Bilirubin,Indirect 0.4 mg/dL (0.0-1.0); Bilirubin,Total 0.7 mg/dL (0.3-1.0); Globulin 2.7 g/dL (2.4-3.5); Total Protein 6.2 g/dL (6.4-8.9)
[2021-06-14 09:56] LABS: Basophils # 0.1 K/mcL (0.0-0.2); Basophils % 0.2 %; Eosinophils # 0.1 K/mcL (0.0-0.6); Eosinophils % 0.4 %; Lymphocytes # 23.5 K/mcL (0.6-4.6); Lymphocytes % 88.8 %; Monocytes # 0.2 K/mcL (0.0-1.3); Monocytes % 0.9 %; Neutrophils # 2.5 K/mcL (1.6-8.9); Segmented Neutrophils % 9.5 %
[2021-06-14] MEDS: Folic Acid 1 MG TABLET PO SCH (10:29)
[2021-06-14] MEDS: amLODIPine 5 MG TABLET PO SCH (10:29)
[2021-06-14] MEDS: atenoloL 50 MG TABLET PO SCH (10:29)
[2021-06-14] MEDS: Aspirin 325 MG TABLET PO SCH (10:29)
[2021-06-14] MEDS: Ascorbic Acid 500 MG TABLET PO SCH (10:29)
[2021-06-14] MEDS: Lactobacillus 1 EACH CAP.SPRINK PO SCH ×2 (10:29→20:53)
[2021-06-14] MEDS: risperiDONE 0.25 MG TABLET PO SCH (20:52)
[2021-06-15 04:59] LABS: Basophils % 0.2 %; Eosinophils # 0.1 K/mcL (0.0-0.6); Eosinophils % 0.4 %; Hemoglobin 11.5 g/dL (11.5-15.4); Immature Granulocytes % 0.1 % (0-4); Lymphocytes # 20.1 K/mcL (0.6-4.6); Lymphocytes % 88.6 %; Mean Corpuscular HGB Conc 31.9 g/dL (31.6-35.5); Mean Corpuscular Hemoglobin 31.9 pg (28.0-33.3); Mean Platelet Volume 9.5 fL (9.4-12.4); Monocytes # 0.2 K/mcL (0.0-1.3); Monocytes % 0.7 %; Neutrophils # 2.3 K/mcL (1.6-8.9); Platelet Count 130 K/mcL (140-400); Red Cell Distribution Width 14.1 % (11.5-14.5); White Blood Count 22.7 K/mcL (4.3-11.1)
[2021-06-15 05:09] LABS: Basophils # 0.1 K/mcL (0.0-0.2)
[2021-06-15 05:16] LABS: BUN/Creatinine Ratio 22 (6-26); Blood Urea Nitrogen 14 mg/dL (8-23); Carbon Dioxide 27 mEq/L (23-29); Chloride 102 mEq/L (98-107); Glucose 89 mg/dL (70-105); Osmolality,Calculated 280 (280-300); Sodium 135 mEq/L (136-145); eGFR For African Americans > 60 (> 60); eGFR For Non-African Americans > 60 (> 60)
[2021-06-15 05:17] LABS: Albumin 3.5 g/dL (3.5-5.7); Albumin/Globulin Ratio 1.3 (1.1-2.2); Bilirubin,Direct 0.2 mg/dL (0.0-0.2); Bilirubin,Indirect 0.6 mg/dL (0.0-1.0); Bilirubin,Total 0.8 mg/dL (0.3-1.0); Globulin 2.8 g/dL (2.4-3.5); Total Protein 6.3 g/dL (6.4-8.9)
[2021-06-15 07:05] LABS: Platelet Estimate Slight Decrease (Normal); Reactive Lymphocytes Present (Not Present)
[2021-06-15] MEDS: Lactobacillus 1 EACH CAP.SPRINK PO SCH ×2 (11:23→20:09)
[2021-06-15] MEDS: Ascorbic Acid 500 MG TABLET PO SCH (11:23)
[2021-06-15] MEDS: Folic Acid 1 MG TABLET PO SCH (11:23)
[2021-06-15] MEDS: Aspirin 325 MG TABLET PO SCH (11:23)
[2021-06-15] MEDS: amLODIPine 5 MG TABLET PO SCH (11:24)
[2021-06-15] MEDS: atenoloL 50 MG TABLET PO SCH (11:24)
[2021-06-15] MEDS: risperiDONE 0.25 MG TABLET PO SCH (20:08)
[2021-06-16 01:16] LABS: Basophils % 0.1 %; Eosinophils # 0.1 K/mcL (0.0-0.6); Eosinophils % 0.3 %; Hematocrit 35.7 % (35.3-44.9); Hemoglobin 11.4 g/dL (11.5-15.4); Immature Granulocytes % 0.1 % (0-4); Lymphocytes # 19.4 K/mcL (0.6-4.6); Lymphocytes % 87.9 %; Mean Corpuscular HGB Conc 31.9 g/dL (31.6-35.5); Mean Corpuscular Hemoglobin 32.3 pg (28.0-33.3); Mean Corpuscular Volume 101.1 fL (83.0-100.0); Monocytes # 0.2 K/mcL (0.0-1.3); Neutrophils # 2.3 K/mcL (1.6-8.9); Platelet Count 130 K/mcL (140-400); Red Blood Count 3.53 M/mcL (3.82-4.97); Red Cell Distribution Width 14.1 % (11.5-14.5); Segmented Neutrophils % 10.6 %; White Blood Count 22.1 K/mcL (4.3-11.1)
[2021-06-16 01:34] LABS: BUN/Creatinine Ratio 22 (6-26); Blood Urea Nitrogen 14 mg/dL (8-23); Carbon Dioxide 28 mEq/L (23-29); Chloride 102 mEq/L (98-107); Glucose 95 mg/dL (70-105); Osmolality,Calculated 278 (280-300); Potassium 3.6 mEq/L (3.5-5.1); Sodium 134 mEq/L (136-145); eGFR For African Americans > 60 (> 60); eGFR For Non-African Americans > 60 (> 60)
[2021-06-16 01:36] LABS: Platelet Estimate Normal (Normal); Smudge Cells Present (Not Present)
[2021-06-16 01:37] LABS: Reactive Lymphocytes Present (Not Present)
[2021-06-16] MEDS: atenoloL 50 MG TABLET PO SCH (08:26)
[2021-06-16] MEDS: Folic Acid 1 MG TABLET PO SCH (08:26)
[2021-06-16] MEDS: Lactobacillus 1 EACH CAP.SPRINK PO SCH ×2 (08:26→20:44)
[2021-06-16] MEDS: Ascorbic Acid 500 MG TABLET PO SCH (08:26)
[2021-06-16] MEDS: amLODIPine 5 MG TABLET PO SCH (08:26)
[2021-06-16] MEDS: Aspirin 325 MG TABLET PO SCH (08:26)
[2021-06-16] MEDS: *HR* Enoxaparin 40 MG/0.4 ML SYRINGE SQ SCH (08:28)
[2021-06-16] MEDS ORDERED: *HR* Heparin 5,000 UNIT/ML VIAL SQ SCH (18:00)
[2021-06-16] MEDS: risperiDONE 0.25 MG TABLET PO SCH (20:44)
[2021-06-17] MEDS: *HR* Enoxaparin 40 MG/0.4 ML SYRINGE SQ SCH (05:45)
[2021-06-17 07:22] LABS: Basophils % 0.2 %; Hemoglobin 11.3 g/dL (11.5-15.4); Immature Granulocytes % 0.1 % (0-4); Lymphocytes % 88.4 %; Mean Corpuscular Volume 99.4 fL (83.0-100.0); Mean Platelet Volume 10.1 fL (9.4-12.4); Red Cell Distribution Width 14.3 % (11.5-14.5); Segmented Neutrophils % 10.2 %
[2021-06-17 07:24] LABS: Basophils # 0.1 K/mcL (0.0-0.2); Eosinophils # 0.1 K/mcL (0.0-0.6); Eosinophils % 0.4 %; Immature Platelets 4.9 % (1.1-6.1); Lymphocytes # 20.2 K/mcL (0.6-4.6); Mean Corpuscular HGB Conc 32.3 g/dL (31.6-35.5); Mean Corpuscular Hemoglobin 32.1 pg (28.0-33.3); Monocytes # 0.2 K/mcL (0.0-1.3); Monocytes % 0.7 %; Neutrophils # 2.3 K/mcL (1.6-8.9); Platelet Count 127 K/mcL (140-400); Red Blood Count 3.52 M/mcL (3.82-4.97); White Blood Count 22.8 K/mcL (4.3-11.1)
[2021-06-17 07:45] LABS: BUN/Creatinine Ratio 20 (6-26); Blood Urea Nitrogen 14 mg/dL (8-23); Calcium 9.3 mg/dL (8.6-10.3); Carbon Dioxide 27 mEq/L (23-29); Chloride 102 mEq/L (98-107); Glucose 97 mg/dL (70-105); Osmolality,Calculated 278 (280-300); Sodium 134 mEq/L (136-145); eGFR For African Americans > 60 (> 60); eGFR For Non-African Americans > 60 (> 60)
[2021-06-17 07:46] LABS: Platelet Estimate Slight Decrease (Normal); Reactive Lymphocytes Present (Not Present)
[2021-06-17] MEDS: amLODIPine 5 MG TABLET PO SCH (09:17)
[2021-06-17] MEDS: Folic Acid 1 MG TABLET PO SCH (09:17)
[2021-06-17] MEDS: Ascorbic Acid 500 MG TABLET PO SCH (09:17)
[2021-06-17] MEDS: Aspirin 325 MG TABLET PO SCH (09:17)
[2021-06-17] MEDS: atenoloL 50 MG TABLET PO SCH (09:17)
[2021-06-17] MEDS: Lactobacillus 1 EACH CAP.SPRINK PO SCH ×2 (09:18→20:36)
[2021-06-17] MEDS: risperiDONE 0.25 MG TABLET PO SCH (20:36)
[2021-06-18 03:27] LABS: Eosinophils % 0.3 %; Mean Platelet Volume 10.2 fL (9.4-12.4)
[2021-06-18 03:29] LABS: Basophils # 0.1 K/mcL (0.0-0.2); Basophils % 0.2 %; Eosinophils # 0.1 K/mcL (0.0-0.6); Hematocrit 33.6 % (35.3-44.9); Immature Granulocytes % 0.1 % (0-4); Lymphocytes # 20.9 K/mcL (0.6-4.6); Lymphocytes % 89.4 %; Mean Corpuscular HGB Conc 32.7 g/dL (31.6-35.5); Mean Corpuscular Hemoglobin 32.5 pg (28.0-33.3); Mean Corpuscular Volume 99.4 fL (83.0-100.0); Monocytes # 0.2 K/mcL (0.0-1.3); Monocytes % 0.9 %; Neutrophils # 2.1 K/mcL (1.6-8.9); Platelet Count 124 K/mcL (140-400); Red Blood Count 3.38 M/mcL (3.82-4.97); Red Cell Distribution Width 14.2 % (11.5-14.5); Segmented Neutrophils % 9.1 %; White Blood Count 23.4 K/mcL (4.3-11.1)
[2021-06-18 03:50] LABS: BUN/Creatinine Ratio 19 (6-26); Blood Urea Nitrogen 14 mg/dL (8-23); Calcium 8.8 mg/dL (8.6-10.3); Carbon Dioxide 27 mEq/L (23-29); Chloride 101 mEq/L (98-107); Glucose 94 mg/dL (70-105); Osmolality,Calculated 280 (280-300); Platelet Estimate Normal (Normal); Potassium 3.7 mEq/L (3.5-5.1); Reactive Lymphocytes Present (Not Present); Smudge Cells Present (Not Present); Sodium 135 mEq/L (136-145); eGFR For African Americans > 60 (> 60); eGFR For Non-African Americans > 60 (> 60)
[2021-06-18] MEDS: *HR* Enoxaparin 40 MG/0.4 ML SYRINGE SQ SCH (05:27)
[2021-06-18] MEDS: atenoloL 50 MG TABLET PO SCH (09:46)
[2021-06-18] MEDS: Lactobacillus 1 EACH CAP.SPRINK PO SCH (09:46)
[2021-06-18] MEDS: Ascorbic Acid 500 MG TABLET PO SCH (09:46)
[2021-06-18] MEDS: Aspirin 325 MG TABLET PO SCH (09:47)
[2021-06-18] MEDS: Folic Acid 1 MG TABLET PO SCH (09:47)
[2021-06-18] MEDS: amLODIPine 5 MG TABLET PO SCH (09:47)
[2021-06-18 16:26] LABS: Influenza A PCR Negative (Negative); Influenza B PCR Negative (Negative); Resp. Syncytial Virus PCR Negative (Negative)
[2021-06-18 16:27] LABS: SARS-CoV-2 by PCR (In House) Negative (Negative)
[2021-06-18 17:55] VITALS: BP 103/63; PULSE 71; TEMP 97.3; O2SAT 97
== END 2021-06-18 18:03 | DRG 871 ==
LOC: 4WAOSI 10:59 → EMEROOARM 10:59 → 4WAOSI 18:56
PROVIDERS: ADMIT Pharmacist; ATTEND Pharmacist

== ENCOUNTER 2021-10-01 05:29 | Inpatient (IN) ==
[2021-10-01] MEDS ORDERED: Ondansetron 4 MG/2 ML VIAL IVP PRN (13:11)
[2021-10-01] MEDS ORDERED: Acetaminophen 325 MG TABLET PO PRN (13:11)
[2021-10-01] MEDS ORDERED: Naloxone 0.4 MG/ML INJ IVP PRN (13:11)
[2021-10-01] MEDS ORDERED: *HR* HYDROcodone/Acet 5/325 mg TABLET PO PRN (13:11)
[2021-10-01] MEDS ORDERED: *HR* OxyCODONE Immed Rel 5 MG TABLET PO PRN (13:11)
[2021-10-01] MEDS ORDERED: risperiDONE 0.25 MG TABLET PO SCH (21:00)
[2021-10-01] MEDS ORDERED: Melatonin 3 MG TABLET PO SCH (21:00)
[2021-10-02 08:36] LABS: Hemoglobin 9.8 g/dL (11.5-15.4); Mean Platelet Volume 10.7 fL (9.4-12.4)
[2021-10-02 08:37] LABS: Hematocrit 29.5 % (35.3-44.9); Mean Corpuscular HGB Conc 33.2 g/dL (31.6-35.5); Mean Corpuscular Hemoglobin 33.2 pg (28.0-33.3); Platelet Count 103 K/mcL (140-400); Red Blood Count 2.95 M/mcL (3.82-4.97)
[2021-10-02 08:45] LABS: Prothrombin Time 11.6 Seconds (9.4-12.1)
[2021-10-02 08:49] LABS: White Blood Count 35.4 K/mcL (4.3-11.1)
[2021-10-02 08:56] LABS: BUN/Creatinine Ratio 34 (6-26); Blood Urea Nitrogen 22 mg/dL (8-23); Calcium 8.8 mg/dL (8.6-10.3); Carbon Dioxide 27 mEq/L (23-29); Chloride 100 mEq/L (98-107); Glucose 108 mg/dL (70-105); Magnesium 1.8 mg/dL (1.6-2.6); Osmolality,Calculated 286 (280-300); Potassium 4.1 mEq/L (3.5-5.1); Sodium 136 mEq/L (136-145); eGFR For African Americans > 60 (> 60); eGFR For Non-African Americans > 60 (> 60)
[2021-10-02] MEDS ORDERED: amLODIPine 5 MG TABLET PO SCH (09:00)
[2021-10-02] MEDS ORDERED: Aspirin 325 MG TABLET PO SCH (09:00)
[2021-10-02] MEDS ORDERED: Folic Acid 1 MG TABLET PO SCH (09:00)
[2021-10-02] MEDS ORDERED: atenoloL 50 MG TABLET PO SCH (09:00)
[2021-10-02] MEDS ORDERED: Ascorbic Acid 500 MG TABLET PO SCH (09:00)
[2021-10-02 09:09] LABS: Thyroid Stimulating Hormone 6.058 mcIU/mL (0.340-5.600)
[2021-10-02 09:50] LABS: Lymphocytes # 28.3 K/mcL (0.6-4.6); Monocytes # 2.1 K/mcL (0.0-1.3); Platelet Estimate Decreased (Normal); Reactive Lymphocytes Present (Not Present); Smudge Cells Present (Not Present)
[2021-10-02] MEDS ORDERED: CeFAZolin Syr 2,000MG/20 ML 2,000 MG/20 ML SYRINGE IVPB ONE (14:10)
[2021-10-02] MEDS ORDERED: Ringers Solution, Lactated 1,000 ML IVC SCH ×2 (14:15→17:14)
[2021-10-02] MEDS ORDERED: Lidocaine HCL 4 ML Topical Solution (Laryng-O-Jet Kit Sterile Pak) TP ONE (14:25)
[2021-10-02] MEDS ORDERED: *HR* Propofol 200 MG/20 ML VIAL IVP ONE (14:25)
[2021-10-02] MEDS ORDERED: Lidocaine -MPF 2% 2 ML VIAL ONE (14:25)
[2021-10-02] MEDS ORDERED: *HR* Rocuronium Bromide 50 MG/5 ML VIAL ONE (14:25)
[2021-10-02] MEDS ORDERED: *HR* Succinylcholine 200 MG/10 ML VIAL IVP ONE (14:25)
[2021-10-02] MEDS ORDERED: Ondansetron 4 MG/2 ML VIAL ONE (14:25)
[2021-10-02] MEDS ORDERED: *HR* Etomidate 40 MG/20 ML VIAL IVP ONE (14:25)
[2021-10-02] MEDS ORDERED: *HR* FentaNYL (PF) 100 MCG/2 ML VIAL ONE (14:25)
[2021-10-02] MEDS ORDERED: *HR* FentaNYL (PF) 100 MCG/2 ML VIAL IVP PRN ×2 (14:47→17:14)
[2021-10-02] MEDS ORDERED: Ondansetron 4 MG/2 ML VIAL IVP PRN ×3 (14:47→17:14)
[2021-10-02] MEDS ORDERED: *HR* OxyCODONE Immed Rel 5 MG TABLET PO PRN ×2 (14:47→17:14)
[2021-10-02] MEDS ORDERED: *HR* HYDROmorphone PF 0.5 MG/0.5 ML SYRINGE IVP PRN ×2 (14:47→17:14)
[2021-10-02] MEDS ORDERED: Acetaminophen 325 MG TABLET PO PRN (17:14)
[2021-10-02] MEDS ORDERED: *HR* HYDROcodone/Acet 5/325 mg TABLET PO PRN (17:14)
[2021-10-02] MEDS ORDERED: Naloxone 0.4 MG/ML INJ IVP PRN (17:14)
[2021-10-02] MEDS ORDERED: Melatonin 3 MG TABLET PO SCH (21:00)
[2021-10-02] MEDS: risperiDONE 0.25 MG TABLET PO SCH (21:05)
[2021-10-02] MEDS: *HR* OxyCODONE Immed Rel 5 MG TABLET PO PRN (23:42)
[2021-10-02] MEDS: CeFAZolin 2 GM/120 ML BAG IVPB SCH (23:44)
[2021-10-03 01:04] LABS: Basophils % 0.2 %; Hematocrit 28.1 % (35.3-44.9); Mean Corpuscular Volume 102.2 fL (83.0-100.0); Red Blood Count 2.75 M/mcL (3.82-4.97); Red Cell Distribution Width 14.1 % (11.5-14.5)
[2021-10-03 01:06] LABS: Basophils # 0.1 K/mcL (0.0-0.2); Hemoglobin 8.9 g/dL (11.5-15.4); Immature Granulocytes % 0.3 % (0-4); Lymphocytes # 34.3 K/mcL (0.6-4.6); Lymphocytes % 83.3 %; Mean Corpuscular HGB Conc 31.7 g/dL (31.6-35.5); Mean Corpuscular Hemoglobin 32.4 pg (28.0-33.3); Mean Platelet Volume 10.3 fL (9.4-12.4); Monocytes % 2.3 %; Neutrophils # 5.7 K/mcL (1.6-8.9); Platelet Count 116 K/mcL (140-400); Segmented Neutrophils % 13.9 %
[2021-10-03 01:12] LABS: White Blood Count 41.2 K/mcL (4.3-11.1)
[2021-10-03 01:23] LABS: Alanine Aminotransferase 10 Units/L (7-52); Albumin 3.2 g/dL (3.5-5.7); Albumin/Globulin Ratio 1.5 (1.1-2.2); Alkaline Phosphatase 68 Units/L (34-104); Aspartate Amino Transferase 25 Units/L (13-39); BUN/Creatinine Ratio 27 (6-26); Bilirubin,Total 0.5 mg/dL (0.3-1.0); Blood Urea Nitrogen 24 mg/dL (8-23); Calcium 8.2 mg/dL (8.6-10.3); Carbon Dioxide 26 mEq/L (23-29); Chloride 98 mEq/L (98-107); Globulin 2.2 g/dL (2.4-3.5); Glucose 173 mg/dL (70-105); Osmolality,Calculated 286 (280-300); Potassium 4.3 mEq/L (3.5-5.1); Sodium 134 mEq/L (136-145); Total Protein 5.4 g/dL (6.4-8.9); eGFR For African Americans > 60 (> 60); eGFR For Non-African Americans > 60 (> 60)
[2021-10-03 01:29] LABS: Platelet Estimate Slight Decrease (Normal); Smudge Cells Present (Not Present)
[2021-10-03] MEDS: CeFAZolin 2 GM/120 ML BAG IVPB SCH (06:44)
[2021-10-03] MEDS: *HR* OxyCODONE Immed Rel 5 MG TABLET PO PRN (06:49)
[2021-10-03] MEDS: atenoloL 50 MG TABLET PO SCH (09:41)
[2021-10-03] MEDS: Ascorbic Acid 500 MG TABLET PO SCH (09:41)
[2021-10-03] MEDS: Aspirin 325 MG TABLET PO SCH (09:42)
[2021-10-03] MEDS: Folic Acid 1 MG TABLET PO SCH (09:42)
[2021-10-03] MEDS: amLODIPine 5 MG TABLET PO SCH (09:42)
[2021-10-03] MEDS ORDERED: *HR* HYDROcodone/Acet 5/325 mg TABLET PO PRN (16:15)
[2021-10-03] MEDS: risperiDONE 0.25 MG TABLET PO SCH (20:06)
[2021-10-04 05:15] LABS: Basophils % 0.2 %; Immature Granulocytes % 0.2 % (0-4); Monocytes % 0.8 %; Red Cell Distribution Width 14.1 % (11.5-14.5)
[2021-10-04 05:17] LABS: Basophils # 0.1 K/mcL (0.0-0.2); Hematocrit 27.4 % (35.3-44.9); Hemoglobin 8.8 g/dL (11.5-15.4); Lymphocytes # 37.8 K/mcL (0.6-4.6); Lymphocytes % 86.8 %; Mean Corpuscular HGB Conc 32.1 g/dL (31.6-35.5); Mean Corpuscular Hemoglobin 32.1 pg (28.0-33.3); Mean Platelet Volume 10.3 fL (9.4-12.4); Monocytes # 0.4 K/mcL (0.0-1.3); Neutrophils # 5.2 K/mcL (1.6-8.9); Platelet Count 140 K/mcL (140-400); Red Blood Count 2.74 M/mcL (3.82-4.97)
[2021-10-04 05:18] LABS: White Blood Count 43.6 K/mcL (4.3-11.1)
[2021-10-04 05:59] LABS: Hypochromasia Present (Not Present); Platelet Estimate Slight Decrease (Normal); Smudge Cells Present (Not Present)
[2021-10-04] MEDS: Aspirin 325 MG TABLET PO SCH (08:00)
[2021-10-04] MEDS: Ascorbic Acid 500 MG TABLET PO SCH (08:00)
[2021-10-04] MEDS: Folic Acid 1 MG TABLET PO SCH (08:01)
[2021-10-04] MEDS: atenoloL 50 MG TABLET PO SCH (08:01)
[2021-10-04] MEDS: amLODIPine 5 MG TABLET PO SCH (08:01)
[2021-10-04] MEDS: risperiDONE 0.25 MG TABLET PO SCH (21:32)
[2021-10-05] MEDS ORDERED: 0.9 % Sodium Chloride 500 ML IVC PRN (03:34)
[2021-10-05] MEDS: *HR* Metoprolol 5 MG/5 ML VIAL IVP PRN ×2 (03:55→05:23)
[2021-10-05 04:35] LABS: Immature Granulocytes % 0.2 % (0-4)
[2021-10-05 04:37] LABS: Basophils # 0.1 K/mcL (0.0-0.2); Basophils % 0.2 %; Eosinophils % 0.1 %; Hematocrit 25.3 % (35.3-44.9); Hemoglobin 8.4 g/dL (11.5-15.4); Lymphocytes # 40.3 K/mcL (0.6-4.6); Lymphocytes % 87.3 %; Mean Corpuscular HGB Conc 33.2 g/dL (31.6-35.5); Mean Corpuscular Hemoglobin 33.5 pg (28.0-33.3); Mean Corpuscular Volume 100.8 fL (83.0-100.0); Mean Platelet Volume 10.6 fL (9.4-12.4); Monocytes # 0.2 K/mcL (0.0-1.3); Monocytes % 0.5 %; Neutrophils # 5.4 K/mcL (1.6-8.9); Platelet Count 178 K/mcL (140-400); Red Blood Count 2.51 M/mcL (3.82-4.97); Segmented Neutrophils % 11.7 %
[2021-10-05 04:41] LABS: Eosinophils # 0.1 K/mcL (0.0-0.6)
[2021-10-05 04:42] LABS: White Blood Count 46.2 K/mcL (4.3-11.1)
[2021-10-05 05:00] LABS: BUN/Creatinine Ratio 37 (6-26); Blood Urea Nitrogen 18 mg/dL (8-23); Calcium 8.5 mg/dL (8.6-10.3); Carbon Dioxide 26 mEq/L (23-29); Chloride 98 mEq/L (98-107); Glucose 117 mg/dL (70-105); Magnesium 1.8 mg/dL (1.6-2.6); Osmolality,Calculated 279 (280-300); Potassium 4.1 mEq/L (3.5-5.1); Sodium 133 mEq/L (136-145); Troponin I < 0.03 ng/mL (< 0.04); eGFR For African Americans > 60 (> 60); eGFR For Non-African Americans > 60 (> 60)
[2021-10-05 05:04] LABS: Platelet Clumps Few (Not Present); Platelet Estimate Normal (Normal)
[2021-10-05] MEDS: Folic Acid 1 MG TABLET PO SCH (08:55)
[2021-10-05] MEDS: Aspirin 325 MG TABLET PO SCH (08:56)
[2021-10-05] MEDS: Ascorbic Acid 500 MG TABLET PO SCH (08:56)
[2021-10-05] MEDS: amLODIPine 5 MG TABLET PO SCH (08:56)
[2021-10-05] MEDS: atenoloL 50 MG TABLET PO SCH (08:56)
[2021-10-05] MEDS: Cefdinir 300 MG CAPSULE PO SCH ×2 (11:27→21:28)
[2021-10-05] MEDS: risperiDONE 0.25 MG TABLET PO SCH (21:28)
[2021-10-05 23:33] LABS: Bacteria,Urine Few per hpf (None-Few); Bilirubin,Urine Negative (Negative); Blood,Urine Negative (Negative); Clarity,Urine Clear (Clear); Color,Urine Light-Yellow (Yellow); Glucose,Urine (UA) Normal (Normal); Ketones,Urine 10 mg/dL (Negative); Leukocyte Esterase,Urine Trace (Negative); Mucus,Urine Few per lpf (None-Few); Nitrite,Urine Negative (Negative); Protein,Urine Negative (Neg-Trace); RBC,Urine 0-3 per hpf (0-3); Specific Gravity,Urine 1.016 (1.010-1.025); Urobilinogen,Urine Normal (Normal); WBC,Urine 0-3 per hpf (0-3)
[2021-10-06 00:26] LABS: ABG Base Excess 3 mEq/L (-2 to 3); ABG HCO3 28 mEq/L (21-27); ABG Oxygen Saturation 94 % (95-98); ABG PCO2 41 mmHg (35-45); ABG PH 7.44 pH Units (7.32-7.45); ABG PO2 70 mmHg (85-104); ABG TCO2 29 mEq/L (20-26)
[2021-10-06 05:26] LABS: BUN/Creatinine Ratio 28 (6-26); Blood Urea Nitrogen 16 mg/dL (8-23); Calcium 8.3 mg/dL (8.6-10.3); Carbon Dioxide 30 mEq/L (23-29); Chloride 100 mEq/L (98-107); Glucose 94 mg/dL (70-105); Magnesium 1.8 mg/dL (1.6-2.6); Osmolality,Calculated 279 (280-300); Potassium 3.9 mEq/L (3.5-5.1); Sodium 134 mEq/L (136-145); eGFR For African Americans > 60 (> 60); eGFR For Non-African Americans > 60 (> 60)
[2021-10-06] MEDS: amLODIPine 5 MG TABLET PO SCH (10:20)
[2021-10-06] MEDS: atenoloL 50 MG TABLET PO SCH (10:20)
[2021-10-06] MEDS: Cefdinir 300 MG CAPSULE PO SCH ×2 (10:21→20:55)
[2021-10-06] MEDS: Ascorbic Acid 500 MG TABLET PO SCH (10:21)
[2021-10-06] MEDS: Folic Acid 1 MG TABLET PO SCH (10:21)
[2021-10-06] MEDS: Aspirin 325 MG TABLET PO SCH (10:21)
[2021-10-06 11:17] LABS: Influenza A PCR Negative (Negative); Influenza B PCR Negative (Negative); Resp. Syncytial Virus PCR Negative (Negative)
[2021-10-06 11:22] LABS: SARS-CoV-2 by PCR (In House) Positive (Negative)
[2021-10-06] MEDS: risperiDONE 0.25 MG TABLET PO SCH (20:54)
[2021-10-07 03:55] LABS: Basophils % 0.2 %; Eosinophils % 0.3 %; Hematocrit 25.9 % (35.3-44.9); Hemoglobin 8.6 g/dL (11.5-15.4); Immature Granulocytes % 0.2 % (0-4); Lymphocytes % 88.7 %; Mean Corpuscular HGB Conc 33.2 g/dL (31.6-35.5)
[2021-10-07 03:57] LABS: Basophils # 0.1 K/mcL (0.0-0.2); Eosinophils # 0.1 K/mcL (0.0-0.6); Lymphocytes # 33.1 K/mcL (0.6-4.6); Mean Corpuscular Hemoglobin 32.6 pg (28.0-33.3); Mean Corpuscular Volume 98.1 fL (83.0-100.0); Monocytes # 0.3 K/mcL (0.0-1.3); Monocytes % 0.7 %; Neutrophils # 3.7 K/mcL (1.6-8.9); Platelet Count 166 K/mcL (140-400); Red Blood Count 2.64 M/mcL (3.82-4.97); Red Cell Distribution Width 14.3 % (11.5-14.5); Segmented Neutrophils % 9.9 %
[2021-10-07 04:18] LABS: BUN/Creatinine Ratio 38 (6-26); Blood Urea Nitrogen 17 mg/dL (8-23); Calcium 8.4 mg/dL (8.6-10.3); Carbon Dioxide 26 mEq/L (23-29); Chloride 97 mEq/L (98-107); Glucose 85 mg/dL (70-105); Osmolality,Calculated 273 (280-300); Sodium 131 mEq/L (136-145); eGFR For African Americans > 60 (> 60); eGFR For Non-African Americans > 60 (> 60)
[2021-10-07 04:41] LABS: White Blood Count 37.3 K/mcL (4.3-11.1)
[2021-10-07 04:45] LABS: Hypochromasia Present (Not Present); Microcytosis Present (Not Present); Smudge Cells Present (Not Present)
[2021-10-07 04:46] LABS: Platelet Estimate Normal (Normal); Reactive Lymphocytes Present (Not Present)
[2021-10-07] MEDS: *HR* Enoxaparin 40 MG/0.4 ML SYRINGE SQ SCH (06:25)
[2021-10-07] MEDS: amLODIPine 5 MG TABLET PO SCH (09:21)
[2021-10-07] MEDS: Folic Acid 1 MG TABLET PO SCH (09:21)
[2021-10-07] MEDS: Cefdinir 300 MG CAPSULE PO SCH ×2 (09:22→19:54)
[2021-10-07] MEDS: Ascorbic Acid 500 MG TABLET PO SCH (09:22)
[2021-10-07] MEDS: atenoloL 50 MG TABLET PO SCH (09:22)
[2021-10-07] MEDS: *HR* OxyCODONE Immed Rel 5 MG TABLET PO PRN (19:54)
[2021-10-07] MEDS: risperiDONE 0.25 MG TABLET PO SCH (19:57)
[2021-10-08] MEDS: *HR* Enoxaparin 40 MG/0.4 ML SYRINGE SQ SCH (06:07)
[2021-10-08] MEDS: Folic Acid 1 MG TABLET PO SCH (07:50)
[2021-10-08] MEDS: amLODIPine 5 MG TABLET PO SCH (07:50)
[2021-10-08] MEDS: Ascorbic Acid 500 MG TABLET PO SCH (07:50)
[2021-10-08] MEDS: Cefdinir 300 MG CAPSULE PO SCH ×2 (07:50→23:08)
[2021-10-08] MEDS: atenoloL 50 MG TABLET PO SCH (07:50)
[2021-10-08 08:12] LABS: Basophils # 0.1 K/mcL (0.0-0.2); Basophils % 0.2 %; Eosinophils # 0.1 K/mcL (0.0-0.6); Eosinophils % 0.2 %; Hematocrit 24.6 % (35.3-44.9); Hemoglobin 8.1 g/dL (11.5-15.4); Immature Granulocytes % 0.2 % (0-4); Lymphocytes % 89.4 %; Mean Corpuscular HGB Conc 32.9 g/dL (31.6-35.5); Mean Corpuscular Hemoglobin 32.7 pg (28.0-33.3); Mean Corpuscular Volume 99.2 fL (83.0-100.0); Mean Platelet Volume 9.8 fL (9.4-12.4); Monocytes # 0.2 K/mcL (0.0-1.3); Monocytes % 0.5 %; Neutrophils # 3.8 K/mcL (1.6-8.9); Platelet Count 179 K/mcL (140-400); Red Blood Count 2.48 M/mcL (3.82-4.97); Red Cell Distribution Width 14.4 % (11.5-14.5); Segmented Neutrophils % 9.5 %
[2021-10-08 08:28] LABS: BUN/Creatinine Ratio 29 (6-26); Blood Urea Nitrogen 14 mg/dL (8-23); Calcium 8.3 mg/dL (8.6-10.3); Carbon Dioxide 27 mEq/L (23-29); Chloride 95 mEq/L (98-107); Glucose 97 mg/dL (70-105); Osmolality,Calculated 270 (280-300); Sodium 130 mEq/L (136-145); eGFR For African Americans > 60 (> 60); eGFR For Non-African Americans > 60 (> 60)
[2021-10-08 08:40] LABS: White Blood Count 40.3 K/mcL (4.3-11.1)
[2021-10-08 08:44] LABS: Platelet Estimate Normal (Normal); Smudge Cells Present (Not Present)
[2021-10-08 08:46] LABS: Hypochromasia Present (Not Present)
[2021-10-08] MEDS: risperiDONE 0.25 MG TABLET PO SCH (23:08)
[2021-10-09] MEDS: *HR* Enoxaparin 40 MG/0.4 ML SYRINGE SQ SCH (05:37)
[2021-10-09] MEDS: Cefdinir 300 MG CAPSULE PO SCH ×2 (10:53→21:06)
[2021-10-09] MEDS: Ascorbic Acid 500 MG TABLET PO SCH (10:53)
[2021-10-09] MEDS: Folic Acid 1 MG TABLET PO SCH (10:53)
[2021-10-09] MEDS: atenoloL 50 MG TABLET PO SCH (11:02)
[2021-10-09] MEDS: amLODIPine 5 MG TABLET PO SCH (11:02)
[2021-10-09] MEDS: risperiDONE 0.25 MG TABLET PO SCH (21:06)
[2021-10-10] MEDS: *HR* Enoxaparin 40 MG/0.4 ML SYRINGE SQ SCH (05:40)
[2021-10-10] MEDS: Folic Acid 1 MG TABLET PO SCH (07:59)
[2021-10-10] MEDS: Ascorbic Acid 500 MG TABLET PO SCH (07:59)
[2021-10-10] MEDS: atenoloL 50 MG TABLET PO SCH (08:02)
[2021-10-10] MEDS: amLODIPine 5 MG TABLET PO SCH (08:02)
[2021-10-10 10:06] VITALS: BP 109/68; PULSE 81; TEMP 98.2; O2SAT 93
== END 2021-10-10 17:04 | DRG 480 ==
LOC: 4WAOSI → SUATTDRO 10:46
PROVIDERS: ADMIT Pharmacist; ATTEND Pharmacist